=== PATIENT | male | born 1970 | race Caucasian/White ===

== ENCOUNTER 2017-03-06 18:15 | Emergency (ER) | payer BC ==
--- NOTE | ~2017-03-06 | CR263 ---
[facility] A Service of [facility] RADIOLOGY TEXT RESULTS PATIENT: BRADLEY SUGGS LOCATION: SED : 70 UNIT #: [id number] AGE: [address]: Neeta Flowers APRN SEX: M ORDER DR: [id number] [place] [id number] E MR#: [id number] Acc #: [id number] NAME: BRADLEY SUGGS : 1970 SEX: M STUDY DATE/TIME: 03/06/2017 18:24 UNIT: SED ROOM: STUDY DESCRIPTION: CR Toe 2 Views Great Rt Attending Physician: Neeta Flowers A.P.R.N. Ordering Physician: Neeta Flowers A.P.R.N. Primary Care Physician: Arsh Coats M.D. MEDICAL IMAGING REPORT This report is preliminary unless electronic signature is present. EXAM Right first toe 3 views 03/06/2017 HISTORY Pain and bleeding and laceration down the middle of the first nail. Dropped a piece of metal on first toe today. FINDINGS 3 views of the right first toe demonstrate no fracture. There is approximately 4 mm linear metallic foreign body located within the plantar soft tissues overlying the tuft of the first distal phalanx. This is only seen on the lateral view. Clinical correlation is recommended. Soft tissue swelling is seen about the first phalanx. IMPRESSION 1. No evidence of fracture. 2. 4 mm linear metallic foreign body within the plantar soft tissues overlying the tuft of the first distal phalanx. Clinical correlation is recommended. 3. Soft tissue swelling about the first phalanx. Dictated by... Gavino Law M.D. THIS IS AN ELECTRONICALLY VERIFIED REPORT Gavino Law M.D. at 03/08/2017 8:19 AM KRT/pcl TD: 03/06/2017 23:15 [facility] A Service of [facility] RADIOLOGY TEXT RESULTS PATIENT: BRADLEY SUGGS LOCATION: SED : 70 UNIT #: [id number] AGE: [address]: Neeta Flowers APRN SEX: M ORDER DR: JOB #: [id number] MEDICAL IMAGING REPORT Page 1 of 1
[~2017-03-06 18:15] MED LIST: ZESTRIL10 M1 PO
== END 2017-03-06 21:08 | disposition home or self-care (01) ==
LOC: SED 18:15
DX: S91.111A Laceration without foreign body of right great toe without damage to nail, initial encounter (principal); Z23 Encounter for immunization; X58.XXXA Exposure to other specified factors, initial encounter; Y92.098 Other place in other non-institutional residence as the place of occurrence of the external cause
CPT/HCPCS: 12001; 73660; 90471; 90715; 99283